=== PATIENT | female | born 1975 | race Hispanic/Latino ===

== ENCOUNTER 2019-11-11 10:09 | Emergency (ER) | payer SELFPAY ==
[2019-11-11 10:27] VITALS: BP 132/82
[2019-11-11] MEDS ORDERED: ACETAMINOPHEN 500 MG TAB PO ONE (14:08)
--- NOTE | 2019-11-11 14:10 | Emergency Department Report ---
HPI - General Chief Complaint: Upper Respiratory Infection Time Seen by Provider: 11/11/19 13:57 - HPI HPI: Room 41 The patient is a 44-year-old female presenting with chief complaint of cough and rib pain. Patient states week she's had a cough that has been nonproductive. Patient complains of pain along the right posterior ribs with her cough. Patient also has a headache when she coughs. Patient states she's had a fever 101F. Patient denies sick contacts. Patient denies history rhinorrhea Location: [See above] Duration: [See above] Quality: [See above] Severity: [See above] Timing: [See above] Context: [See above] Modifying factors: [See above] Associated signs and symptoms: [see above] ED Past Medical Hx - Past Medical History Previous Medical History?: No - Surgical History Additional Surgical History: TAMMIELER - Family History Family history: no significant - Social History Smoking Status: Never Smoker Substance Use Type: None (denies illicit drug use) - Medications Home Medications: Home Medications Medication Instructions Recorded Confirmed Last Taken Type Albuterol INH(or & Nicu Only) 2 puff IH QID PRN #8.5 gram 11/11/19 Unknown Rx [ProAir HFA Inhaler] Benzonatate [Tessalon Perles] 100 mg PO Q8HR #30 capsule 11/11/19 Unknown Rx Ciprofloxacin HCl [Ciprofloxacin 500 mg PO Q12HR #20 tab 11/11/19 Unknown Rx TAB] HYDROcodone/APAP 5-325 [Cresson 1 - 2 each PO Q6HR PRN #10 tablet 11/11/19 Unknown Rx 5/325] Ibuprofen [Motrin 800 MG tab] 800 mg PO Q8HR PRN #20 tablet 11/11/19 Unknown Rx ED Review of Systems ROS: Stated complaint: SIDE PAIN/CHILLS/COUGHING Other details as noted in HPI Constitutional: fever Respiratory: cough Musculoskeletal: myalgia Physical Exam - Physical Exam Vital Signs: Vital Signs 11/11/19 10:23 Temperature 100.2 F H Pulse Rate 113 H Respiratory 24 Rate Blood Pressure 132/82 O2 Sat by Pulse 97 Oximetry Physical Exam: GENERAL: The patient is well-developed well-nourished female lying on stretcher not appearing to be in acute distress. [] HEENT: Normocephalic. Atraumatic. Extraocular motions are intact. Patient has moist mucous membranes. NECK: Supple. Trachea midline CHEST/LUNGS: Clear to auscultation. There is no respiratory distress noted. HEART/CARDIOVASCULAR: Regular. There is no tachycardia. There is no gallop rub or murmur. ABDOMEN: Abdomen is soft, nontender. Patient has normal bowel sounds. There is no abdominal distention. SKIN: There is no rash. There is no edema. There is no diaphoresis. NEURO: The patient is awake, alert, and oriented. The patient is cooperative. The patient has normal speech and gait. MUSCULOSKELETAL: There is no evidence of acute injury. ED Course Vital Signs 11/11/19 10:23 Temperature 100.2 F H Pulse Rate 113 H Respiratory 24 Rate Blood Pressure 132/82 O2 Sat by Pulse 97 Oximetry ED Medical Decision Making - Radiology Data Radiology results: report reviewed (chest x-ray), image reviewed (chest x-ray) interpreted by me: Chest x-ray-no definite focal infiltrate, pneumothorax [facility] [address] [place] [address] XRay Report Signed Patient: COLTON SMILEY MR#: [id number] : 1975 Acct:[id number] Age/Sex: 44 / F ADM Date: 11/11/19 Loc: ED Attending Dr: Ordering Physician: AMRIT CARTAGENA MD Date of Service: 11/11/19 Procedure(s): XR chest routine 2V Accession Number(s): [id number] cc: AMRIT CARTAGENA MD Fluoro Time In Minutes: CHEST 2 VIEWS INDICATION / CLINICAL INFORMATION: cough, right rib pain with cough. COMPARISON: None available. FINDINGS: SUPPORT DEVICES: None. HEART / MEDIASTINUM: No significant abnormality. LUNGS / PLEURA: No significant pulmonary or pleural abnormality. No pneumothorax. ADDITIONAL FINDINGS: No significant additional findings. IMPRESSION: No significant abnormality Signer Name: Roscoe Hickman MD FACR Signed: 11/11/2019 2:33 PM Workstation Name: [id number] Transcribed By: MS Dictated By: Roscoe Hickman MD Electronically Authenticated By: Roscoe Hickman MD Signed Date/Time: 11/11/19 143 DD/ 32 TD/TT: - Medical Decision Making Patient informed staff that she has a resting heart rate of 110 at baseline. - Differential Diagnosis pneumonia, bronchitis Critical care attestation.: If time is entered above; I have spent that time in minutes in the direct care of this critically ill patient, excluding procedure time. ED Disposition Clinical Impression: Cough, Fever Disposition: DC- TO HOME OR SELFCARE Is pt being admited?: No Does the pt Need Aspirin: No Condition: Stable Instructions: Pneumonia (ED) Additional Instructions: Return to the emergency department should you develop worsening symptoms, inability to tolerate food or liquids, high fever or any other concerns Prescriptions: Ciprofloxacin HCl [Ciprofloxacin TAB] 500 mg PO Q12HR #20 tab Ibuprofen [Motrin 800 MG tab] 800 mg PO Q8HR PRN #20 tablet PRN Reason: Pain, Moderate (4-6) HYDROcodone/APAP 5-325 [Cresson 5/325] 1 - 2 each PO Q6HR PRN #10 tablet PRN Reason: Pain Albuterol INH(or & Nicu Only) [ProAir HFA Inhaler] 2 puff IH QID PRN #8.5 gram PRN Reason: Shortness Of Breath Benzonatate [Tessalon Perles] 100 mg PO Q8HR #30 capsule [facility] Care Provider[facility] - 3-5 Days Time of Disposition: 15:44
--- NOTE | 2019-11-11 14:38 | XRay Report ---
CHEST 2 VIEWS INDICATION / CLINICAL INFORMATION: cough, right rib pain with cough. COMPARISON: None available. FINDINGS: SUPPORT DEVICES: None. HEART / MEDIASTINUM: No significant abnormality. LUNGS / PLEURA: No significant pulmonary or pleural abnormality. No pneumothorax. ADDITIONAL FINDINGS: No significant additional findings. IMPRESSION: No significant abnormality Signer Name: Roscoe Hickman MD FACR Signed: 11/11/2019 2:33 PM Workstation Name: [id number]
== END 2019-11-11 16:05 | disposition home or self-care (01) ==
LOC: ED 10:09
DX: R05 Cough (principal); R50.9 Fever, unspecified; Z79.899 Other long term (current) drug therapy
CPT/HCPCS: 71046